=== PATIENT | male | born 1990 | race American Indian/Alaskan Native ===

== ENCOUNTER 2019-07-22 16:25 | Emergency (ER) | payer SELFPAY ==
[2019-07-22 18:41] LABS: Basophils % (Auto) 0.5 % (0.0-1.8); Eosinophils # (Auto) 0.3 K/mm3 (0.0-0.4); Eosinophils % (Auto) 4.7 % (0.0-4.3); Hematocrit 47.4 % (35.5-45.6); Lymphocytes % (Auto) 33.8 % (13.4-35.0); Mean Corpuscular HGB Conc 34 % (32-34); Mean Corpuscular Volume 83 fl (84-94); Monocytes # (Auto) 0.6 K/mm3 (0.0-0.8); Monocytes % (Auto) 10.1 % (0.0-7.3); Platelet Count 280 K/mm3 (140-440); Red Blood Count 5.71 M/mm3 (3.65-5.03); Red Cell Distribution Width 12.7 % (13.2-15.2)
[2019-07-22 18:53] LABS: Alanine Aminotransferase 22 units/L (7-56); Albumin 4.6 g/dL (3.9-5); BUN/Creatinine Ratio 9; Blood Urea Nitrogen 7 mg/dL (9-20); Calcium 9.2 mg/dL (8.4-10.2); Hemolysis Index 20
--- NOTE | 2019-07-22 20:34 | XRay Report ---
ABDOMEN 2 VIEW(S) INDICATION / CLINICAL INFORMATION: ABD PAIN. Rectal bleeding. COMPARISON: None available. FINDINGS: TUBES / LINES: None. BOWEL GAS PATTERN: No significant abnormality. FREE AIR / EXTRALUMINAL GAS: None seen. ADDITIONAL FINDINGS: No significant additional findings. IMPRESSION: 1. No significant abnormality. Signer Name: Freedom Ruiz MD Signed: 07/22/2019 8:30 PM Workstation Name: [email or web address]
--- NOTE | 2019-07-22 20:35 | Emergency Department Report ---
ED Abdominal Pain HPI - General Chief Complaint: GI Bleed Stated Complaint: BLOOD IN STOOL Time Seen by Provider: 07/22/19 19:49 Source: patient Mode of arrival: Ambulatory Limitations: No Limitations - History of Present Illness Initial Comments: Mr. Da Silva is a 28-year-old -[place] male who presents with blood streak in stool this is been a recurrent problem for the last 4 months. States he wanted to get it checked out today. States he noted blood when he wiped today no history of hemorrhoids. However he does have hard firm stools. Often described as rabbit pellets. Patient denies fevers or chills, no nausea vomiting, denies abdominal pain at this point. Is able to tolerate p.o. intake. There is no dizziness, lightheadedness., or headache symptoms are exacerbated by nothing. Symptoms are relieved by nothing tried.. There is no family history of gastric CA or polyps. MD Complaint: abdominal pain -: month(s) Location: LLQ, RLQ Radiation: LLQ, RLQ Migration to: no migration Severity: moderate Severity scale (0 -10): 4 Quality: cramping Consistency: intermittent Improves With: nothing Worsens With: bowel movement Context: other (constipation, blood streak stool ) Associated Symptoms: constipation. denies: nausea, vomiting, diarrhea, fever, chills, dysuria, melena, hematuria - Related Data Previous Rx's Medication Instructions Recorded Last Taken Type bisacodyL [Dulcolax suppos] 10 mg AR ONCE PRN #5 supp.rect 07/22/19 Unknown Rx polyethylene glycoL 3350 [Miralax 17 gm PO BID PRN #14 packet 07/22/19 Unknown Rx 3350] Allergies Allergy/AdvReac Type Severity Reaction Status Date / Time No Known Allergies Allergy Unverified 07/22/19 16:30 ED Review of Systems ROS: Stated complaint: BLOOD IN STOOL Other details as noted in HPI Constitutional: denies: chills, fever Eyes: denies: eye pain, eye discharge, vision change ENT: denies: ear pain, throat pain Respiratory: denies: cough, shortness of breath, wheezing Cardiovascular: denies: chest pain, palpitations Endocrine: no symptoms reported Gastrointestinal: abdominal pain, constipation, hematochezia (intermittent). denies: nausea, vomiting, diarrhea, hematemesis, melena Genitourinary: denies: urgency, dysuria, frequency, hematuria, discharge Musculoskeletal: denies: back pain, joint swelling, arthralgia Skin: denies: rash, lesions Neurological: denies: headache, weakness, paresthesias Psychiatric: denies: anxiety, depression Hematological/Lymphatic: denies: easy bleeding, easy bruising ED Past Medical Hx - Past Medical History Previous Medical History?: No - Surgical History Past Surgical History?: No - Social History Smoking Status: Never Smoker Substance Use Type: None - Medications Home Medications: Home Medications Medication Instructions Recorded Confirmed Last Taken Type bisacodyL [Dulcolax suppos] 10 mg AR ONCE PRN #5 supp.rect 07/22/19 Unknown Rx polyethylene glycoL 3350 [Miralax 17 gm PO BID PRN #14 packet 07/22/19 Unknown Rx 3350] ED Physical Exam - General Limitations: No Limitations General appearance: alert, in no apparent distress - Head Head exam: Present: atraumatic, normocephalic - Eye Eye exam: Present: normal appearance, PERRL, EOMI Pupils: Present: normal accommodation - ENT ENT exam: Present: mucous membranes moist - Neck Neck exam: Present: normal inspection, full ROM. Absent: tenderness - Respiratory Respiratory exam: Present: normal lung sounds bilaterally. Absent: wheezes, stridor, chest wall tenderness - Cardiovascular Cardiovascular Exam: Present: regular rate, normal rhythm, normal heart sounds. Absent: systolic murmur, diastolic murmur, rubs, gallop - GI/Abdominal GI/Abdominal exam: Present: soft, tenderness (LLQ ), normal bowel sounds. Absent: distended, guarding, rebound, rigid, organomegaly, mass, bruit, pulsatile mass, hernia - Rectal Rectal exam: Present: deferred, other (pt refused ) - Extremities Exam Extremities exam: Present: normal inspection, full ROM, normal capillary refill - Back Exam Back exam: Present: normal inspection, full ROM. Absent: tenderness, CVA tenderness (R), muscle spasm - Neurological Exam Neurological exam: Present: alert, oriented X3, CN II-XII intact, normal gait, reflexes normal. Absent: motor sensory deficit - Psychiatric Psychiatric exam: Present: normal affect, normal mood - Skin Skin exam: Present: warm, dry, intact, normal color. Absent: rash ED Course Vital Signs 07/22/19 16:30 Temperature 98.1 F Pulse Rate 64 Respiratory 18 Rate Blood Pressure 120/70 O2 Sat by Pulse 100 Oximetry ED Medical Decision Making - Lab Data Result diagrams: 07/22/19 18:28 07/22/19 18:28 Labs 07/22/19 07/22/19 18:28 18:28 WBC 6.0 RBC 5.71 H Hgb 16.0 H Hct 47.4 H MCV 83 L MCH 28 MCHC 34 RDW 12.7 L Plt Count 280 Lymph % (Auto) 33.8 [place] % (Auto) 10.1 H Eos % (Auto) 4.7 H Baso % (Auto) 0.5 Lymph # 2.0 [place] # 0.6 Eos # 0.3 Baso # 0.0 Seg Neutrophils % 50.9 Seg Neutrophils # 3.0 Sodium 138 Potassium 4.2 Chloride 100.4 Carbon Dioxide 26 Anion Gap 16 BUN 7 L Creatinine 0.8 Estimated GFR > 60 BUN/Creatinine Ratio 9 Glucose 84 Calcium 9.2 Total Bilirubin 0.20 AST 21 ALT 22 Alkaline Phosphatase 58 Total Protein 7.6 Albumin 4.6 Albumin/Globulin Ratio 1.5 - Radiology Data Radiology results: report reviewed, image reviewed abd nonobstructive gas pattern - Medical Decision Making This is likely constipation patient refuses digital exam , there are no external hemorrhoids noted on exam however plan MiraLAX, Dulcolax suppositories continue to hydrate follow-up with PCP in 2 to 3 days , follow up with GI if sympmtoms persist. patient verbalizes agreement and understanding with discharge plan will be DC'd home in stable condition at this time Critical care attestation.: If time is entered above; I have spent that time in minutes in the direct care of this critically ill patient, excluding procedure time. ED Disposition Clinical Impression: Constipation Qualifiers: Constipation type: other constipation type Qualified Code(s): K59.09 - Other constipation Disposition: DC-01 TO HOME OR SELFCARE Is pt being admited?: No Does the pt Need Aspirin: No Condition: Stable Instructions: Constipation (ED), High Fiber Diet (ED), Rectal Bleeding (ED) Prescriptions: bisacodyL [Dulcolax suppos] 10 mg AR ONCE PRN #5 supp.rect PRN Reason: Constipation polyethylene glycoL 3350 [Miralax 3350] 17 gm PO BID PRN #14 packet PRN Reason: Constipation Referrals: PRIMARY CARE, [Primary Care Provider] - 3-5 Days Forms: Accompanied Note, Work/School Release Form(ED) Time of Disposition: 20:44
[2019-07-22 21:23] VITALS: BP 116/68
== END 2019-07-22 21:22 | disposition home or self-care (01) ==
LOC: ED 16:25
DX: K59.09 Other constipation (principal); Z79.899 Other long term (current) drug therapy
CPT/HCPCS: 36415; 74018; 80053; 85025